=== PATIENT | female | born 1975 | race American Indian/Alaskan Native ===

== ENCOUNTER 2021-04-25 16:04 | Emergency (ER) | payer BC ==
[2021-04-25] MEDS ORDERED: ASPIRIN 325 MG TAB PO ONE (16:35)
[2021-04-25] MEDS ORDERED: SODIUM CHLORIDE 0.9% 1000 ML 1,000 ML IV ONE (16:35)
--- NOTE | 2021-04-25 16:35 | Emergency Department Report ---
ED Chest Pain HPI - General Chief Complaint: Chest Pain Stated Complaint: CHEST PAIN Time Seen by Provider: 04/25/21 16:26 Source: patient Mode of arrival: Ambulatory Limitations: No Limitations - History of Present Illness Initial Comments: 46-year-old female presents to the ER today with complaints of left-sided chest pain. She states that she woke up with the pain this morning. She states that is been intermittent dull pain. She states that this morning was about a 10 out of 10. She currently is not experiencing any pain. He states that the pain seemed to be worse when she has laying on her right side this morning but otherwise reports no other modifying factors. She reports associated intermittent shortness of breath with exertion. She states that she has had a cough since around gi and started with a cold about 1 week ago. She had a Covid test and a flu test and they were both negative. She states that most of her symptoms have resolved except the cough. She denies any fever, chills, nausea, vomiting, wheezing, abdominal pain, lower extremity swelling or calf pain. Patient reports history of anemia but denies any other significant past history including heart disease or lung disease. She denies any history of PE or DVT. 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 Other than possible immobility, she reports no other risk factors for PE or DVT. 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 She had a stress test, treadmill and that was normal. She also had echo and that was normal. She denies tobacco use, drug use or any alcohol abuse. MD Complaint: chest pain -: This morning Severity scale (0 -10): 6 - Related Data Previous Rx's Medication Instructions Recorded Last Taken Type Albuterol Mdi (or & Nicu Only) 2 puff IH QID PRN #8.5 gram 04/25/21 Unknown Rx [ProAir HFA Inhaler] Benzonatate [Tessalon Perles] 100 mg PO Q8HR #30 capsule 04/25/21 Unknown Rx Allergies Allergy/AdvReac Type Severity Reaction Status Date / Time No Known Allergies Allergy Unverified 04/25/21 16:11 Heart Score - HEART Score History: Slightly suspicious EKG: Normal Age: < 45 Risk factors: 1-2 risk factors Troponin: < normal limit HEART Score: 1 - EKG Read Time Time EKG Completed: 16:06 EKG Read Time: 16:12 ED Review of Systems ROS: Stated complaint: CHEST PAIN Other details as noted in HPI Comment: All other systems reviewed and negative Constitutional: denies: chills, fever Eyes: denies: eye pain, eye discharge, vision change ENT: denies: ear pain, throat pain Respiratory: cough, shortness of breath. denies: SOB with exertion, SOB at rest, wheezing Cardiovascular: denies: chest pain, palpitations, dyspnea on exertion, edema, syncope, paroxysmal nocturnal dyspnea Gastrointestinal: denies: abdominal pain, nausea, vomiting, diarrhea, constipation, hematemesis, hematochezia Genitourinary: denies: urgency, dysuria, frequency, hematuria, discharge, abnormal menses, dyspareunia Musculoskeletal: denies: back pain, joint swelling, arthralgia Skin: denies: rash, lesions Neurological: denies: headache, weakness, numbness, paresthesias, confusion, abnormal gait, vertigo Psychiatric: denies: anxiety, depression, auditory hallucinations, visual hallucinations, homicidal thoughts, suicidal thoughts Hematological/Lymphatic: denies: easy bleeding, easy bruising, swollen glands ED Past Medical Hx - Medications Home Medications: Home Medications Medication Instructions Recorded Confirmed Last Taken Type Albuterol Mdi (or & Nicu Only) 2 puff IH QID PRN #8.5 gram 04/25/21 Unknown Rx [ProAir HFA Inhaler] Benzonatate [Tessalon Perles] 100 mg PO Q8HR #30 capsule 04/25/21 Unknown Rx ED Physical Exam - General Limitations: No Limitations General appearance: alert, in no apparent distress, obese - Head Head exam: Present: atraumatic, normocephalic, normal inspection - Eye Eye exam: Present: normal appearance, PERRL, EOMI Pupils: Present: normal accommodation - ENT ENT exam: Present: normal exam, mucous membranes moist, TM's normal bilaterally - Neck Neck exam: Present: normal inspection, full ROM. Absent: meningismus - Respiratory Respiratory exam: Present: normal lung sounds bilaterally. Absent: wheezes, rales, rhonchi, chest wall tenderness - Cardiovascular Cardiovascular Exam: Present: regular rate, normal rhythm, normal heart sounds - GI/Abdominal GI/Abdominal exam: Present: soft. Absent: distended, tenderness, guarding, rebound - Neurological Exam Neurological exam: Present: alert, oriented X3, CN II-XII intact, normal gait - Psychiatric Psychiatric exam: Present: normal affect, normal mood - Skin Skin exam: Present: intact ED Course Vital Signs 04/25/21 16:11 Temperature 98.5 F Pulse Rate 91 H Respiratory 17 Rate Blood Pressure 139/82 [Right] O2 Sat by Pulse 98 Oximetry ED Medical Decision Making - Lab Data Result diagrams: 04/25/21 16:50 04/25/21 16:50 - EKG Data EKG shows normal: sinus rhythm Rate: normal (94) - EKG Data Interpretation: normal EKG - Radiology Data Radiology results: report reviewed Patient: CHANTAL TAN MR#: [id number] 81 : 1975 Acct:[id number] Age/Sex: 46 / F ADM Date: 04/25/21 Loc: ED Attending Dr: Ordering Physician: EMILEE OVERTON Date of Service: 04/25/21 Procedure(s): XR chest routine 2V Accession Number(s): [id number] cc: EMILEE OVERTON Fluoro Time In Minutes: CHEST 2 VIEWS INDICATION / CLINICAL INFORMATION: Chest Pain. COMPARISON: None available. FINDINGS: SUPPORT DEVICES: None. HEART / MEDIASTINUM: No significant abnormality. LUNGS / PLEURA: No significant pulmonary or pleural abnormality. No pne umothorax. ADDITIONAL FINDINGS: No significant additional findings. IMPRESSION: 1. No acute findings. Signer Name: Cristiano Goins DO Signed: 04/25/2021 5:53 PM Workstation Name: [id number] Transcribed By: WILLIAMS Dictated By: CRISTIANO GOINS DO Electronically Authenticated By: CRISTIANO GOINS DO Signed Date/Time: 04/25/211752 DD/ 51 TD/TT: - Medical Decision Making 2002: Patient work-up today unremarkable--chest x-ray shows nothing acute. CBC shows a hemoglobin of 9, history of anemia. CMP unremarkable. Troponin normal. D-dimer is also normal. EKG shows normal sinus rhythm with a heart rate of 94 no acute ischemic changes, significant dysrhythmias or other abnormalities. Patient is currently sitting comfortably in the recliner. She is not in any acute pain or respiratory distress. She is not toxic or ill-appearing. She is neurologically intact with a normal gait. Discussed results with patient. The history, exam, diagnostic testing and current condition do not suggest that this patient is having acute myocardial infarction, significant arrhythmia, unstable angina, esophageal perforation, pulmonary embolism, aortic dissection, pneumothorax, severe pneumonia, sepsis or other significant pathology that would warrant further testing, continued ED treatment, admission or cardiology or other specialist consultation at this time. Patient has had a cough for a while, this could be related to bronchitis and so she will be prescribed albuterol inhaler and something to help her cough. Patient instructed to follow-up with her PCP and cardiology return to [place]. She understands if anything changes or worsens to return to the ER. Critical care attestation.: If time is entered above; I have spent that time in minutes in the direct care of this critically ill patient, excluding procedure time. ED Disposition Clinical Impression: Nonspecific chest pain, Bronchitis Disposition: 01 HOME / SELF CARE / HOMELESS Is pt being admited?: No Does the pt Need Aspirin: No Condition: Stable Instructions: Nonspecific Chest Pain, Adult, Acute Bronchitis, Adult, Chronic Bronchitis (ED) Additional Instructions: I recommend that you take the Tessalon Perles and use albuterol inhaler as prescribed to help with your cough and your shortness of breath. You can take Tylenol and ibuprofen to help with any pain. 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 Return to the ER if symptoms worsens or changes in any way. Prescriptions: Albuterol Mdi (or & Nicu Only) [ProAir HFA Inhaler] 2 puff IH QID PRN #8.5 gram PRN Reason: Shortness Of Breath Benzonatate [Tessalon Perles] 100 mg PO Q8HR #30 capsule Referrals: PRIMARY CARE, [Primary Care Provider] - 3-5 Days Forms: Work/School Release Form(ED) Time of Disposition: 19:57
[2021-04-25 17:21] LABS: Basophils # (Auto) 0.2 K/mm3 (0.0-0.1); Basophils % (Auto) 1.8 % (0.0-1.8); Eosinophils # (Auto) 0.2 K/mm3 (0.0-0.4); Eosinophils % (Auto) 1.7 % (0.0-4.3); Lymphocytes % (Auto) 29.8 % (13.4-35.0); Mean Corpuscular HGB Conc 29 % (30-34); Monocytes # (Auto) 1.1 K/mm3 (0.0-0.8); Monocytes % (Auto) 10.8 % (0.0-7.3); Platelet Count 362 K/mm3 (140-440); Red Blood Count 4.93 M/mm3 (3.65-5.03)
[2021-04-25 17:22] LABS: Hematocrit 30.5 % (30.3-42.9); Mean Corpuscular Volume 62 fl (79-97)
[2021-04-25 17:32] LABS: Alanine Aminotransferase 16 units/L (7-56); Albumin 4.3 g/dL (3.9-5); Blood Urea Nitrogen 16 mg/dL (7-17); Calcium 9.3 mg/dL (8.4-10.2); Hemolysis Index 69
[2021-04-25 17:37] LABS: BUN/Creatinine Ratio 23
--- NOTE | 2021-04-25 17:57 | XRay Report ---
CHEST 2 VIEWS INDICATION / CLINICAL INFORMATION: Chest Pain. COMPARISON: None available. FINDINGS: SUPPORT DEVICES: None. HEART / MEDIASTINUM: No significant abnormality. LUNGS / PLEURA: No significant pulmonary or pleural abnormality. No pneumothorax. ADDITIONAL FINDINGS: No significant additional findings. IMPRESSION: 1. No acute findings. Signer Name: Cristiano Goins DO Signed: 04/25/2021 5:53 PM Workstation Name: [id number]
[2021-04-25 20:16] VITALS: BP 145/49
--- NOTE | 2021-04-26 10:53 | Electrocardiograph Report ---
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
== END 2021-04-25 20:16 | disposition home or self-care (01) ==
LOC: ED 16:04
DX: J40 Bronchitis, not specified as acute or chronic (principal); R07.89 Other chest pain; Z79.899 Other long term (current) drug therapy
CPT/HCPCS: 36415; 71046; 80053; 83690; 84484; 84703; 85025; 85379; 93005; 96360; 99284